=== PATIENT | female | born 2000 | race Asian ===

== ENCOUNTER 2024-06-15 06:29 | Outpatient (REF) | payer OTHER, SELFPAY ==
--- NOTE | ~2024-06-15 | US_ITS ---
EXAMINATION: US OBSTETRICAL ULTRASOUND CLINICAL INFORMATION: with uncertain dates COMPARISON: None available. LMP: Uncertain. Gestational age by maternal dates is uncertain. Estimated date of delivery by maternal dates is uncertain. TECHNIQUE: Ultrasound of the maternal pelvis is performed using transabdominal transducer. M-mode Doppler is also performed. FINDINGS: There is a single intrauterine gestational sac with embryo/fetus, and cardiac activity. There is no significant subchorionic hemorrhage or hematoma. The placenta is at the fundus. The cervix measures 4.9 cm long and is closed. HR: 139 beats per minute. CRL (crown rump length): 6.52 cm (12 weeks 6 days +/- 4 days). ARTURO (estimated date of delivery): 12/22/2024 +/- 4 days. MATERNAL ADNEXA: The right maternal ovary measures 2.8 x 1.7 x 2.1 cm. The left maternal ovary measures 2.9 x 1.7 x 2.0 cm. There is no significant maternal adnexal mass. No maternal pelvic ascites. US/US OB <= 14 weeks fetus IMPRESSION: 1. Single intrauterine gestation with ultrasound gestational age of 12 weeks 6 days +/- 4 days. 2. Estimated date of delivery is 12/22/2024 +/- 4 days. 3. No maternal adnexal mass or pelvic ascites. Electronically signed by: Jey Sagastume MD 06/15/2024 06:14 PM EDT
== END 2024-06-15 06:30 | disposition home or self-care (01) ==
LOC: HO.UMASIMG 06:29
PROVIDERS: Visit Provider Family Medicine
DX: Z34.91 Encounter for supervision of normal pregnancy, unspecified, first trimester (principal); Z3A.01 Less than 8 weeks gestation of pregnancy
CPT/HCPCS: 76801